=== PATIENT | female | born 1965 | race Caucasian/White ===

== ENCOUNTER → 2016-05-05 | Day surgery (SDC) | payer BC ==
[~2016-05-05] VITALS: Ht 175.3 cm; Wt 76.6 kg
[~2016-05-05] MED LIST: ASCORBIC ACID500 MG PO; CALCIUM 500 +1 EACH PO; GLUCOSAMINE CH1 EAC6 PO; LEVOTHROID (S150 MCG PO
--- NOTE | ~2016-05-05 | OR ---
PATIENT'S NAME: ABI CHAN [facility] AGE: 50 Y [address] ROOM: [place], [place] [id number] LOCATION: GEND ADMIT DATE: 05/05/2016 OR/Procedure Report DISCHARGE DATE: FAMILY PHYSICIAN: Rene Leger MD ATTENDING PHYSICIAN: Al Canela SURGEON: Al Canela MD RAILROAD SIGNAL TECHNICIAN: DATE OF PROCEDURE: 05/05/2016 PREOPERATIVE DIAGNOSIS: History of a large right cecal polyp status post piecemeal removal and fulguration. POSTOPERATIVE DIAGNOSIS: Small residual polyp. PROCEDURES PERFORMED: Colonoscopy with snare polypectomy. FINDINGS: In the cecum, there was a very large scar from previous polypectomy. There was still a small polyp present within the cecum, whether this was residual polyp or polyp that was missed previously, it was not quite clear, however, this was able to be easily removed. The bowel prep was moderate to poor. ESTIMATED BLOOD LOSS: Minimal. COMPLICATIONS: None. INDICATIONS FOR PROCEDURE: The patient is a 50-year-old female, who had a previous colonoscopy that revealed a large cecal polyp. We removed this in piecemeal as she was in need of surveillance of this. We discussed a colonoscopy and the risks, benefits, and alternatives, and she elected to proceed. DESCRIPTION OF PROCEDURE: The patient was taken to the endoscopy suite, placed in a left lateral decubitus position, and given sedation by Anesthesia. Digital rectal examination was performed. There were no palpable masses. Colonoscope was inserted in the rectum and was advanced to the rectum and sigmoid colon without much difficulty. We were able to slowly advance the scope all the way to the cecum. Cecum was identified by convergence of the tiniae and the ileocecal valve. Her bowel prep was moderate, making it more difficult to advance into the cecum. We did have to apply pressure to get here. We used copious amounts of irrigation in order to get adequate visualization. However within the cecum, we were able to identify the scar. Approximately 3 cm away from the central portion of the scar, there was a small polypoid area at approximately 6 mm in size. Not clear whether this was residual polyp or previously missed polyp. A cold snare was placed around PATIENT'S NAME: BAI CHAN [facility] AGE: 50 Y [address] ROOM: [place], [place] [address] LOCATION: GEND ADMIT DATE: 05/05/2016 OR/Procedure Report DISCHARGE DATE: FAMILY PHYSICIAN: Rene Leger MD ATTENDING PHYSICIAN: Al Canela this. This was completely removed and was retrieved. Once completed, we further inspected the cecum. No other polyp or residual polyp was present. We slowly withdrew the scope examining the mucosal surfaces. No other polyps or abnormalities were able to be identified, although her bowel prep was moderate to poor. The scope was withdrawn. She tolerated this well. POSTPROCEDURE RECOMMENDATIONS: Abi had very minimal amount of polyp in the cecum today. With this I think it is reasonable to wait three years before having her next examination. Referring is Dr. Adam Short and Dr. Rene Leger. AL CANELA MD BJO/modl /[id number] d: 05/05/162008 t: 05/15/16 1502, OPERATIVE SUMMARY
== END | disposition disaster alternative care site (69) ==
LOC: GPOC 05-01 09:00 → GEND 11:49
PROC: 0DBH8ZX Excision of Cecum, Via Natural or Artificial Opening Endoscopic, Diagnostic (ICD-10-PCS; principal; 2016-05-05)
DX: D12.0 Benign neoplasm of cecum (principal); E03.9 Hypothyroidism, unspecified; Z86.010 Personal history of colon polyps; Z79.899 Other long term (current) drug therapy
CPT/HCPCS: J2001; J7030